=== PATIENT | male | born 1990 | race Caucasian/White ===

== ENCOUNTER 2017-10-06 18:05 | Emergency (ER) | payer BC, SELFPAY ==
[2017-10-06] MEDS ORDERED: Ketorolac Tromethamine 30 MG/ML VIAL ONE (18:36)
[2017-10-06] MEDS ORDERED: Diazepam 5 MG TAB ONE (19:35)
[2017-10-06 19:38] LABS: Bilirubin Small (Negative); Blood, Urine Negative (Negative); Clarity CLEAR (Clear); Glucose, Urine (Dipstick) Negative (Negative); Leukocyte Negative (Negative); Nitrite Negative (Negative); Protein, Urine (Dipstick) 30 mg/dL (Neg-Trace); Specific Gravity, Urine 1.038 (1.002-1.036); pH, Urine 5.5 (5.0-9.0)
[2017-10-06 19:41] LABS: Bacteria/HPF None Seen HPF (None Seen); Pathc Cast-AUWi Flag 1.88 (0-2.49)
[2017-10-06 19:54] LABS: Hyaline Casts/LPF 4-6 HYALINE CAST LPF (0-3 Hyaline)
[2017-10-06 19:55] LABS: Renal Epithelial None Seen HPF (0-3); Transitional Epithelial NONE SEEN HPF (0-3)
== END 2017-10-06 21:04 | disposition home or self-care (01) ==
LOC: ERS 18:05
DX: M54.5 Low back pain (principal); M54.6 Pain in thoracic spine; F32.9 Major depressive disorder, single episode, unspecified; F17.210 Nicotine dependence, cigarettes, uncomplicated
CPT/HCPCS: 81003; 81015; 87086; 96372; J1885

== ENCOUNTER 2018-01-08 21:57 | Emergency (ER) | payer SELFPAY ==
[2018-01-08 22:41] LABS: Bilirubin Small (Negative); Blood, Urine Negative (Negative); Clarity CLEAR (Clear); Glucose, Urine (Dipstick) Negative (Negative); Leukocyte Small (Negative); Nitrite Negative (Negative); Protein, Urine (Dipstick) 30 mg/dL (Neg-Trace); Specific Gravity, Urine 1.029 (1.002-1.036)
[2018-01-08 22:42] LABS: Bacteria/HPF None Seen HPF (None Seen); Hyaline Casts/LPF 7-10 HYALINE CAST LPF (0-3 Hyaline); Pathc Cast-AUWi Flag 0.29 (0-2.49); RBC/HPF 0-3 HPF (0-3); Squamous Epithelial 0-3 HPF (0-3)
[2018-01-08 22:49] LABS: Amphetamine Detected (NotDetected); Barbiturates Screen Not Detected (NotDetected); Benzodiazepine Screen Not Detected (NotDetected); Cocaine Metabolite Screen Not Detected (NotDetected); Medtox Control Line Valid? VALID (VALID); Medtox Reader # READER 1; Methadone Not Detected (NotDetected); Methamphetamine Detected (NotDetected); Opiate Screen Not Detected (NotDetected); Oxycodone Screen Not Detected (NotDetected); Phencyclidine (PCP) Not Detected (NotDetected); THC/Cannabinoid Screen Detected (NotDetected); Tricyclic Screen Not Detected (NotDetected)
[2018-01-08 23:42] LABS: #Eosinphils 0.2 thou/uL (0.0-0.7); #Monocytes 0.5 thou/uL (0.11-0.59); #Neutrophils 3.9 thou/uL (1.40-6.50); %Basophils 0.4 % (0.0-1.0); %Eosinophils 2.7 % (0.0-10.0); %Lymphocytes 29.9 % (21.0-51.0); %Neutrophils 59.1 % (42.0-75.0); Hemoglobin 16.6 g/dL (14.0-18.0); Mean Corpuscular HGB CONC 34.7 g/dL (32.0-36.0); Mean Corpuscular Hemoglobin 30.8 pg (27.0-31.0); Mean Corpuscular Volume 88.8 fL (78.0-98.0); Mean Platelet Volume 7.4 fL (7.4-10.4); Platelet Count 205 thou/uL (130-400); RBC Distribution Width 11.5 % (11.5-14.5); Red Blood Cell (RBC) Count 5.38 mill/uL (4.70-6.10); White Blood Cell (WBC) Count 6.6 thou/uL (4.8-10.8)
[2018-01-09 00:01] LABS: ALT (SGPT) 33 U/L (8-55); AST (SGOT) 20 U/L (5-34); Albumin 4.4 g/dL (3.5-5.0); Alcohol Less than 10 mg/dL (Less than 10); Alkaline Phosphatase 69 U/L (40-150); Anion Gap 13 mmol/L (10-20); BUN (Urea Nitrogen) 14 mg/dL (8.9-20.6); Bilirubin, Total 1.2 mg/dL (0.2-1.2); CK (CPK) 85 U/L (30-200); Calc. Creatinine Clearance 0 mL/min (70-130); Calcium 9.5 mg/dL (7.8-10.44); Carbon Dioxide 28 mmol/L (22-29); Chloride 102 mmol/L (98-107); Estimated GFR-MDRD Greater than 90; Globulin 2.9 g/dL (2.4-3.5); Glucose 104 mg/dL (70-105); Protein, Total 7.3 g/dL (6.0-8.3); Sodium 139 mmol/L (136-145)
== END 2018-01-09 11:30 ==
LOC: ERS 21:57
DX: R45.851 Suicidal ideations (principal); F15.10 Other stimulant abuse, uncomplicated; F32.9 Major depressive disorder, single episode, unspecified; F17.210 Nicotine dependence, cigarettes, uncomplicated
CPT/HCPCS: 36415; 80053; 80306; 80307; 81003; 81015; 82550; 85025; 99285

== ENCOUNTER 2019-07-14 23:56 | Emergency (ER) | payer SELFPAY ==
--- NOTE | 2019-07-15 07:36 | RAD ---
XR Chest Pa Lat STANDARD History: Cough Comparison: None. Findings: Lungs are hypoinflated. Scattered atelectatic changes. No pneumothorax. No effusion. No acu te osseous abnormality. Impression: No acute intrathoracic abnormality.
== END 2019-07-15 02:03 | disposition home or self-care (01) ==
LOC: ERS 23:56
DX: S23.41XA Sprain of ribs, initial encounter (principal); R05 Cough; I10 Essential (primary) hypertension; R73.03 Prediabetes; F17.210 Nicotine dependence, cigarettes, uncomplicated; X50.1XXA Overexertion from prolonged static or awkward postures, initial encounter
CPT/HCPCS: 71046

== ENCOUNTER 2019-08-14 19:35 | Emergency (ER) | payer SELFPAY ==
--- NOTE | 2019-08-14 20:44 | RAD ---
Chest AP view INDICATION: Right-sided back pain and rib pain COMPARISON: Prior exam dated July 15, 2019 FINDINGS: Lungs:The lungs are clear Cardiac silhouette:The cardiomediastinal silhouette appears within normal limits. Pulmonary vasculature:Normal Pleural spaces:No pleural effusion or pneumothorax is demonstrated. Upper abdomen:No abnormality seen. Osseous structures: No acute osseous abnormality. Additional findings:None. IMPRESSION: No acute cardiopulmonary abnormality.
== END 2019-08-14 21:07 | disposition home or self-care (01) ==
LOC: ERS 19:35
DX: S29.011A Strain of muscle and tendon of front wall of thorax, initial encounter (principal); F41.9 Anxiety disorder, unspecified; F32.9 Major depressive disorder, single episode, unspecified; R73.03 Prediabetes; F17.210 Nicotine dependence, cigarettes, uncomplicated; I10 Essential (primary) hypertension; X50.1XXA Overexertion from prolonged static or awkward postures, initial encounter
CPT/HCPCS: 71046

== ENCOUNTER 2020-03-18 07:18 | Inpatient (IN) | payer OTHER ==
[2020-03-18] MEDS ORDERED: Dexamethasone 10 MG/ML VIAL ONE (08:02)
[2020-03-18 08:26] LABS: #Eosinphils 0.2 thou/uL (0.0-0.7); #Lymphocytes 0.7 thou/uL (1.20-3.40); #Monocytes 0.8 thou/uL (0.11-0.59); #Neutrophils 4.2 thou/uL (1.40-6.50); %Basophils 0.5 % (0.0-1.0); %Eosinophils 3.1 % (0.0-10.0); %Lymphocytes 11.9 % (21.0-51.0); %Monocytes 13.8 % (0.0-10.0); %Neutrophils 70.7 % (42.0-75.0); Hemoglobin 13.2 g/dL (14.0-18.0); Mean Corpuscular HGB CONC 33.2 g/dL (32.0-36.0); Mean Corpuscular Hemoglobin 29.1 pg (27.0-31.0); Mean Corpuscular Volume 87.8 fL (78.0-98.0); Mean Platelet Volume 8.3 fL (7.4-10.4); Platelet Count 220 thou/uL (130-400); RBC Distribution Width 12.8 % (11.5-14.5); Red Blood Cell (RBC) Count 4.53 mill/uL (4.70-6.10)
[2020-03-18 08:52] LABS: ALT (SGPT) 56 U/L (8-55); AST (SGOT) 51 U/L (5-34); Alkaline Phosphatase 90 U/L (40-110); Anion Gap 16 mmol/L (10-20); BUN (Urea Nitrogen) 15 mg/dL (8.9-20.6); Bilirubin, Total 0.4 mg/dL (0.2-1.2); CK (CPK) 260 U/L (30-200); Calc. Creatinine Clearance 0 mL/min (70-130); Calcium 8.8 mg/dL (7.8-10.44); Carbon Dioxide 26 mmol/L (22-29); Chloride 96 mmol/L (98-107); Estimated GFR-MDRD Greater than 90; Globulin 3.6 g/dL (2.4-3.5); Glucose 146 mg/dL (70-105); Lipase 44 U/L (8-78); Potassium 3.7 mmol/L (3.5-5.1); Protein, Total 7.6 g/dL (6.0-8.3); Sodium 134 mmol/L (136-145)
--- NOTE | 2020-03-18 10:29 | CT ---
CT PULMONARY ANGIOGRAM WITH IV CONTRAST AND 3-D POSTPROCESSING: HISTORY:Elevated d-dimer. Tachycardia. Cough, fever FINDINGS: There is inadequate contrast opacification of the pulmonary arterial vasculature for satisfactory leticia luation. Possibility of pulmonary embolism cannot be excluded on this exam. The thoracic aorta is well opacified without aneurysm or dissection. No pleural or pericardial effusions are seen. No pneumothoraces, lobar consolidation are noted. There is a small patchy area of groundglass opacity in the lingula. Small area of patchy reticulonodular infiltrate is seen in the right upper lobe. There are old rib fractures. Upper abdominal tomograms demonstrate fatty infiltration of the liver. IMPRESSION: 1. Exam is nondiagnostic for pulmonary embolism. 2. Parenchymal lung findings are suspicious for infection.
--- NOTE | 2020-03-18 11:31 | RAD ---
PORTABLE CHEST 1 VIEW: DATE: 03/18/2020. TIME: 8:14 AM. HISTORY: Cough, fever. COMPARISON: 08/14/2019. FINDINGS/IMPRESSION: There is continued elevation of the right hemidiaphragm. The heart size is normal. No lobar consoli dation, pneumothoraces, or pleural effusions are seen. There are faint opacities of the left lower l jose. POS: OFF
[2020-03-18] MEDS ORDERED: Aspirin Chewable 81 MG TAB ONE (11:47)
[2020-03-18] MEDS ORDERED: Azithromycin 500 MG VIAL ONE (11:47)
[2020-03-18] MEDS ORDERED: Enoxaparin Sodium 80 MG/0.8 ML SYRINGE ONE (11:48)
[2020-03-18] MEDS ORDERED: Enoxaparin Sodium 100 MG/ML SYRINGE ONE (11:48)
[2020-03-18] MEDS ORDERED: Iopamidol-370 76% 500 ML 1 ML ONE (11:55)
[2020-03-18] MEDS ORDERED: Ondansetron PF 4 MG/2 ML Vial IVP PRN (12:01)
[2020-03-18] MEDS ORDERED: Acetaminophen 325 MG TAB PO PRN (12:01)
[2020-03-18] MEDS ORDERED: Senokot S 8.6-50 MG TAB PO PRN (12:01)
[2020-03-18 12:31] LABS: Troponin I 0.012 ng/mL (< 0.028)
[2020-03-18] MEDS: guaiFENesin 200 MG TAB PO SCH ×3 (15:30→21:04)
[2020-03-18 15:53] VITALS: BMI 59.1
--- NOTE | 2020-03-18 16:17 | HP ---
CHIEF COMPLAINT: Cough and fever. HISTORY OF PRESENT ILLNESS: A 29-year-old male without significant past medical history, had a fever this morning and last night had some chills and body ache as well as nausea, but no diarrhea or vomiting. In the ER, he is saturating 93% with [address] chest negative for PE. Chest x-ray as well as CT chest showing left lower lobe infiltrate as well as right upper lobe infiltrate. Consistent with possible COVID. Troponin negative. He was given Decadron as well as Zithromax along with aspirin, Lovenox, and 500 mL of IV fluid, and will be admitted for COVID management given his fever, chills, and hypoxia. The patient works in the [employer]. For the last 2 to 3 months, 3 or 4 people staying there were COVID positive and they were quarantined along with their roommates. The patient usually monitored them without being at close range, however, he noticed that he has difficulty in sleeping as well as waking up with cough for the last 2 months. He came to the ER today because of the fever, chills as well as headache. His D-dimer is elevated at 0.62 and his WBC count 6 and hemoglobin 13.2. The patient has no other medical history. The patient is a smoker since he is 22 years old. He does not wear a CPAP at nighttime. No hospitalization in the past for severe respiratory dysfunction. 13-POINT REVIEW OF SYSTEMS: 13-point review of systems reviewed and pertinents addressed in the history of present illness, and the rest is negative. PAST MEDICAL HISTORY: None. PAST SURGICAL HISTORY: None. SOCIAL HISTORY: The patient lives with family. He smokes a pack a day. No alcohol use. FAMILY HISTORY: Father has diabetes. Mother has CHF. PHYSICAL EXAMINATION: GENERAL: The patient is obese, but not in any acute distress, not in any acute respiratory distress. HEENT: Normocephalic, atraumatic. GENERAL: He appears well. No focal deficits appreciated. Close examination with cardiopulmonary not done due to COVID. ALLERGIES: HE IS ALLERGIC TO AMOXICILLIN. MEDICATIONS: Not updated yet, but it appears he does not have any home medications. LABORATORY DATA: Again, D-dimer 0.62. Troponin x3 negative. Sodium 134, creatinine 0.98. AST 51, ALT 56, creatine kinase 260. Lipase 44. WBC 6.0. CT chest showing lingular infiltrate as well as right upper lobe infiltrate. IMPRESSION AND PLAN: 1. This is a 29-year-old obese male, presenting with clinical symptoms and signs suggestive of COVID. 2. Community-acquired pneumonia. 3. COVID pnuemonia, until test back 4. Hyponatremia. 5. hypertension 6. Diabetes mellitus The patient is admitted in the medical floor. Continue with Decadron, Zithromax , and cough suppressants. Lovenox twice a day dose. We will follow the clinical course. We will wean him off from oxygen dependency. Rest of the management based on the clinical course. Job ID: [id number] MTDD
[2020-03-18 16:25] LABS: Troponin I Less than 0.010 ng/mL (< 0.028)
[2020-03-18] MEDS: Cepastat Lozenges 1 LOZ PO PRN ×2 (18:13→21:06)
[2020-03-18] MEDS ORDERED: Dextrose 5% in Water 1,000 ML IV PRN (20:48)
[2020-03-18] MEDS ORDERED: Dextrose 50% Abboject 50 ML SYRINGE SLOW IVP PRN (20:48)
[2020-03-18] MEDS ORDERED: HumaLOG 300 UNITS/3 ML VIAL SC PRN (20:48)
[2020-03-18] MEDS: Enoxaparin Sodium 40 MG/0.4 ML SYRINGE SC SCH (21:08)
[2020-03-19] MEDS: guaiFENesin 200 MG TAB PO SCH ×6 (00:33→21:35)
[2020-03-19] MEDS: Cepastat Lozenges 1 LOZ PO PRN ×2 (05:11→21:36)
[2020-03-19] MEDS: Azithromycin 250 MG TAB PO SCH (08:13)
[2020-03-19] MEDS: Enoxaparin Sodium 40 MG/0.4 ML SYRINGE SC SCH ×2 (08:13→21:18)
[2020-03-19] MEDS ORDERED: Dexamethasone 4 mg/ml Vial SLOW IVP SCH (09:00)
[2020-03-19] MEDS ORDERED: Prevnar 13-Val Conj/PF 0.5 ML SYRINGE IM ONE (09:00)
[2020-03-19] MEDS ORDERED: Bupropion 150 MG XL TAB PO SCH (11:00)
[2020-03-19] MEDS: HumaLOG 300 UNITS/3 ML VIAL SC PRN ×2 (11:16→16:40)
[2020-03-19 11:32] LABS: SARS-CoV-2 MS2 Positive; SARS-CoV-2 N Gene Positive; SARS-CoV-2 S Gene Positive; SARS-CoV-2 by NAA DETECTED (NotDetected); SARS-CoV-2 orf1ab Positive
--- NOTE | 2020-03-19 14:07 | PDOC.HOSPP ---
- Subjective Encounter Date: 03/19/20 Encounter Time: 11:00 Subjective: Patient has all night cough. But no fever. We will start his home regimen. We will scheduled anticough medication. He is satting 96% with a 2 L oxygen. - Objective Vital Signs & Weight: Vital Signs (12 hours) Temp Pulse Resp BP Pulse Ox 03/19/20 08:00 96 03/19/20 07:01 98.8 F 96 20 148/95 H 96 Weight Weight 400 lb 0.107 oz I&O: 03/18/20 03/19/20 03/20/20 06:59 06:59 06:59 Intake Total 1999 720 Balance 1999 720 Result Diagrams: 03/18/20 07:55 03/18/20 07:55 Additional Labs: Accuchecks 03/19/20 03/19/20 03/18/20 11:20 05:22 21:22 POC Glucose 265 H 152 H 314 H Hospitalist ROS - Medication Medications: Active Medications Generic Name Dose Route Start Last Admin Trade Name Freq PRN Reason Stop Dose Admin Azithromycin 500 mg 03/19/20 09:00 03/19/20 08:13 Zithromax PO 03/22/20 09:01 500 mg DAILY RAHUL Administration Enoxaparin Sodium 40 mg 03/18/20 21:00 03/19/20 08:13 Lovenox SC 40 mg BID RAHUL Administration Guaifenesin 400 mg 03/19/20 13:00 03/19/20 13:38 Organ-I Nr PO 03/21/20 13:01 400 mg Q4HR RAHUL Administration Insulin Human Lispro 0 units 03/18/20 20:48 03/19/20 11:16 Humalog SC 4 unit .MILD SLIDING SCALE PRN Administration Mild Correctional Scale Insulin Human Lispro 0 units 03/18/20 20:48 03/18/20 21:49 Humalog SC 4 units .BEDTIME SLIDING SC PRN Administration Bedtime Correctional Scale Throat Lozenges 2 martin 03/18/20 18:02 03/19/20 05:11 Cepastat Lozenges PO 2 martin TIDPRN PRN Administration SORE THROAT - Exam General Appearance: NAD, awake alert Eye: PERRL ENT: normocephalic atraumatic Neck: supple Neurological: no focal deficits Psychiatric: A&O x 3 Hosp A/P - Plan COVID-19 positive test (U07.1, COVID-19) with Acute Pneumonia (J12.89, Other viral pneumonia) (If respiratory failure or sepsis present, add as separate assessment) -Escalated from Decadron to methylprednisolone given ongoing cough and lung congestion. -Continue with Zithromax Hypoxia -Oxygen status improving. -Will wean him off oxygen requirements as he tolerates. Type 2 diabetes mellitus Continue with metformin Hypertension -On home regimen of lisinopril hydrochlorothiazide Hydralazine as needed to keep the systolic below 150 Obesity -Diet and exercise counseling as appropriate Discharge when clinically more stable - expect in 1 to 2 days.
[2020-03-19] MEDS ORDERED: hydrALAZINE 20 MG/ML VIAL SLOW IVP PRN (14:08)
[2020-03-19] MEDS: metFORMIN 500 MG TAB PO SCH (16:32)
[2020-03-19] MEDS: Atorvastatin Calcium 20 MG TAB PO SCH (21:34)
[2020-03-19] MEDS: methylPREDNISolone Sod Succ 40 MG VIAL IVP SCH (21:43)
[2020-03-20] MEDS: guaiFENesin 200 MG TAB PO SCH ×6 (00:05→21:52)
[2020-03-20] MEDS: Cepastat Lozenges 1 LOZ PO PRN (05:21)
[2020-03-20] MEDS: HumaLOG 300 UNITS/3 ML VIAL SC PRN ×2 (05:36→16:47)
[2020-03-20] MEDS: Enoxaparin Sodium 40 MG/0.4 ML SYRINGE SC SCH ×2 (08:13→21:53)
[2020-03-20] MEDS: metFORMIN 500 MG TAB PO SCH ×2 (08:13→16:40)
[2020-03-20] MEDS: Azithromycin 250 MG TAB PO SCH (08:13)
[2020-03-20] MEDS: Magnesium Oxide 400 MG TAB PO SCH (08:13)
[2020-03-20] MEDS ORDERED: Lisinopril/Hydrochlorothiazide 20/25 mg Tablet PO SCH (09:00)
[2020-03-20] MEDS: methylPREDNISolone Sod Succ 40 MG VIAL IVP SCH ×2 (09:27→21:53)
[2020-03-20] MEDS: Bupropion 150 MG XL TAB PO SCH (09:27)
--- NOTE | 2020-03-20 11:45 | PDOC.HOSPP ---
- Subjective Encounter Date: 03/20/20 Encounter Time: 10:30 Subjective: Talk to the patient over the phone at length. Patient still has ongoing cough more prominent while he is lying on his back. His sats are getting better after being started on IV steroid. he is currently on 96% in the room. His blood pressure is little high. - Objective Vital Signs & Weight: Vital Signs (12 hours) Temp Pulse Resp BP Pulse Ox 03/20/20 08:13 96 03/20/20 08:00 98.2 F 88 18 148/82 H 97 Weight Weight 400 lb 0.107 oz I&O: 03/19/20 03/20/20 03/21/20 06:59 06:59 06:59 Intake Total 1999 Balance 1999 Result Diagrams: 03/18/20 07:55 03/18/20 07:55 Additional Labs: Accuchecks 03/20/20 03/19/20 03/19/20 05:32 21:58 16:45 POC Glucose 207 H 149 H 268 H Hospitalist ROS - Medication Medications: Active Medications Generic Name Dose Route Start Last Admin Trade Name Freq PRN Reason Stop Dose Admin Atorvastatin Calcium 20 mg 03/19/20 21:00 03/19/20 21:34 Lipitor PO 20 mg HS RAHUL Administration Azithromycin 500 mg 03/19/20 09:00 03/20/20 08:13 Zithromax PO 03/22/20 09:01 500 mg DAILY RAHUL Administration Bupropion HCl 150 mg 03/20/20 09:00 03/20/20 09:27 Wellbutrin Xl PO 150 mg DAILY RAHUL Administration Enoxaparin Sodium 40 mg 03/18/20 21:00 03/20/20 08:13 Lovenox SC 40 mg BID RAHUL Administration Guaifenesin 400 mg 03/19/20 13:00 03/20/20 08:13 Organ-I Nr PO 03/21/20 13:01 400 mg Q4HR RAHUL Administration Lisinopril/HCTZ 1 tab 03/20/20 09:00 03/20/20 08:13 Prinizide 20-25 PO 1 tab DAILY RAHUL Administration Insulin Human Lispro 0 units 03/18/20 20:48 03/20/20 05:36 Humalog SC 3 unit .MILD SLIDING SCALE PRN Administration Mild Correctional Scale Insulin Human Lispro 0 units 03/18/20 20:48 03/18/20 21:49 Humalog SC 4 units .BEDTIME SLIDING SC PRN Administration Bedtime Correctional Scale Magnesium Oxide 400 mg 03/20/20 09:00 03/20/20 08:13 Magnesium Oxide PO 400 mg DAILY RAHUL Administration Metformin HCl 1,000 mg 03/19/20 17:00 03/20/20 08:13 Glucophage PO 1,000 mg BID-WM RAHUL Administration Methylprednisolone Sodium Succinate 60 mg 03/19/20 21:00 03/20/20 09:27 Solu-Medrol IVP 60 mg BID RAHUL Administration Throat Lozenges 2 martin 03/18/20 18:02 03/20/20 05:21 Cepastat Lozenges PO 2 martin TIDPRN PRN Administration SORE THROAT Hosp A/P - Plan COVID-19 positive test (U07.1, COVID-19) with Acute Pneumonia (J12.89, Other viral pneumonia) (If respiratory failure or sepsis present, add as separate assessment) -Escalated from Decadron to methylprednisolone given ongoing cough and lung congestion. -Continue with Zithromax Hypoxia -Oxygen status improving. -Will wean him off oxygen requirements as he tolerates. Type 2 diabetes mellitus Continue with metformin Hypertension -On home regimen of lisinopril hydrochlorothiazide Hydralazine as needed to keep the systolic below 150 Obesity -Diet and exercise counseling as appropriate 8th Patient still has ongoing cough more prominent while he is lying on his back. His sats are getting better after being started on IV steroid. he is currently on 96% in the room. His blood pressure Talk to the case monitor about possible transfer for [facility]. It appears that they declined the acceptance. Given his obesity and ongoing cough on the supine position he would benefit with the another couple of days of IV steroid.. I am more concerned about the second phase of COVID i and also he has high risk on his job working at the [employer].
[2020-03-20] MEDS ORDERED: guaiFENesin 200 MG TAB PO PRN (12:35)
--- NOTE | 2020-03-20 14:14 | EKG ---
Test Reason : Blood Pressure : / mmHG Vent. Rate : 128 BPM Atrial Rate : 128 BPM P-R Int : 146 ms QRS Dur : 078 ms QT Int : 304 ms P-R-T Axes : 028 -11 023 degrees QTc Int : 443 ms Sinus tachycardia Possible Anterolateral infarct , age undetermined Abnormal ECG Confirmed by KALIE VILLANUEVA, SUSIE ([id number]), editor managing newspaper [employer]ONA MONTERO ([id number]) on 03/20/2020 2:13:53 PM Referred By: Confirmed By:SUSIE JADE MD
[2020-03-20] MEDS: Atorvastatin Calcium 20 MG TAB PO SCH (21:53)
[2020-03-21] MEDS: guaiFENesin 200 MG TAB PO SCH ×3 (00:46→08:46)
[2020-03-21 00:57] VITALS: BP 118/79; TEMP 98.6
[2020-03-21] MEDS: HumaLOG 300 UNITS/3 ML VIAL SC PRN (05:49)
[2020-03-21] MEDS: Azithromycin 250 MG TAB PO SCH (08:44)
[2020-03-21] MEDS: metFORMIN 500 MG TAB PO SCH (08:44)
[2020-03-21] MEDS: Magnesium Oxide 400 MG TAB PO SCH (08:45)
[2020-03-21] MEDS: methylPREDNISolone Sod Succ 40 MG VIAL IVP SCH (08:45)
[2020-03-21] MEDS: Enoxaparin Sodium 40 MG/0.4 ML SYRINGE SC SCH (08:46)
[2020-03-21] MEDS ORDERED: Chlorthalidone 25 MG TAB PO SCH (09:00)
[2020-03-21] MEDS ORDERED: Lisinopril 20 MG TAB PO SCH (09:00)
[2020-03-21] MEDS: Bupropion 150 MG XL TAB PO SCH (09:43)
[2020-03-21] MEDS ORDERED: guaiFENesin 200 MG TAB PO PRN (14:00)
--- NOTE | 2020-03-22 06:22 | DIS ---
DATE OF ADMISSION: 03/18/2020 DATE OF DISCHARGE: 03/21/2020 DISCHARGE DIAGNOSES: 1. COVID pneumonia. 2. Type 2 diabetes mellitus. 3. Hypertension. 4. Obesity. MEDICATIONS: In addition to his home regimen, he will be sent home with, 1. Guaifenesin 400 mg q.6 hours p.r.n. 2. Decadron 6 mg daily for 14 days. 3. Zithromax 500 mg daily for 14 days. 4. Eliquis 5 mg twice a day for 14 days. PHYSICAL EXAMINATION: VITAL SIGNS: On the day of discharge, temperature 98.6, pulse 99, blood pressure 118/79, satting 94% on room air. GENERAL: The patient is alert, oriented. He is doing much better today. He has less cough. He is ambulating without dyspnea on exertion. Resting well. I talked to him [id number]. He is comfortable going home today. He works at [employer] and he will be quarantined for a total of 2 weeks before going back to his work. HOSPITAL COURSE: 29-year-old obese male with history of diabetes mellitus and hypertension, working at [employer], presented with fever, chills, and nausea. He was tested positive for COVID. Due to hypoxia, he was observed briefly. He has several risk factors for worsening COVID pneumonia including obesity. He was given a short course of methylprednisolone along with Zithromax and Lovenox twice a day dose and anti-cough suppressants. He improved clinically. He will be discharged home today. He has been advised to take the above medications along with self-quarantine for 2 weeks prior to go back to his job at [employer]. DISCHARGE INSTRUCTIONS: Activity as tolerated. Diabetic diet. Follow up with PCP in 3 to 4 weeks as needed. TIME SPENT: Discharge time took over 35 minutes. Job ID: [id number] [facility]
--- NOTE | 2020-03-22 07:24 | PQF ---
CLINICAL DOCUMENTATION CLARIFICATION FORM: Dear : Eladio Lucas Date / Time: 03/22/20 [id number] Please exercise your independent, professional judgment in responding to the clarification form. Clinical indicators are provided on the bottom of this form for your review Please check appropriate box(es) to clarify if the following diagnosis has been ruled in our ruled out: Sepsis [ ] Ruled in diagnosis [ ] Continue to treat [ ] Resolved [ x] Ruled out diagnosis [ ] Improving [ ] Cannot rule out diagnosis [ ] Other diagnosis [ ] Unable to determine In addition, please specify: Present on Admission (POA): [ ] Yes [ ] No [ ] Unable to determine Physician Signature: Date/Time: For continuity of documentation, please document condition throughout progress notes and discharge summary. Thank You. To be completed by CDI/Coding staff for physician review: Present Clinical Indicators - Signs / Symptoms / Labs Results and Location in Medical Record [X] WBC 6.0, Plt count 220, Neutrophils 70.7 Laboratory 03/18 [X] Covid 19 PCR-Detected Serology 03/18 [X] Blood culture 03/18- No growth at 48 hrs Microbiology 03/18 [X] Chest X-ray Impression: Faint opacities of left lower lung Imaging Dr Crawford 03/18 [X] SIRS Scoring: Yes, pt did meet the criteria ED notes p3 03/18 [X] Covid Pneumonia H&P p2 03/18 Dr Lucas [X] If respiratory failure or sepsis present, add as separate assessment HPN p3 03/19 Dr Lucas [X] Temp=98.8 Thfif=868 Respi=22 NH=260/84 Vital Signs 03/18 Present Risk Factors Results and Location in Medical Record [X] Covid Pneumonia H&P p2 03/18 Dr Lucas [X] HTN H&P p2 03/18 Dr Lucas [X] DM H&P p2 03/18 Dr Lucas [X] Obesity H&P p2 03/18 Dr Lucas [X] Smoker ED Notes 03/18 Present Treatments Results and Location in Medical Record [X] Zithromax 500 mg MAR 03/18 [X] [id number] 10 mg MAR 03/18 [X] Covid 19 PCR Serology 03/18 [X] Blood culture 03/18 Microbiology 03/18 [X] Chest X-ray Imaging Dr Crawford 03/18 [X] Sepsis Protocol ED notes p3 03/18 [X] Oxygen 2L Respiratory panel 03/18 CDS/Grades 1 Through 6 Teacher Signature: Darlene Robison Phone #: [phone] Date/Time: 03/22/2020 0214 This is a permanent part of the Medical Record [facility]
== END 2020-03-21 11:58 | disposition home or self-care (01) | DRG 177 ==
LOC: ERS 07:18 → T4-B 11:13
PROVIDERS: ADMIT Internal Medicine; ATTEND Internal Medicine
DX: U07.1 COVID-19 (principal); J12.9 Viral pneumonia, unspecified; E87.1 Hypo-osmolality and hyponatremia; Z68.43 Body mass index [BMI] 50.0-59.9, adult; I10 Essential (primary) hypertension; E11.9 Type 2 diabetes mellitus without complications; R09.02 Hypoxemia; E66.9 Obesity, unspecified; Z79.899 Other long term (current) drug therapy; Z79.84 Long term (current) use of oral hypoglycemic drugs
CPT/HCPCS: 36415; 36416; 71045; 71275; 80053; 82550; 83605; 83690; 83880; 84484; 85025; 85379; 87040; 87635; 93005; J0456; J1100; J1650; J2920; Q9967; U0003